=== PATIENT | male | born 1955 | race Caucasian/White ===

== ENCOUNTER 2018-01-17 10:06 | Emergency (ER) | payer OTHER ==
[~2018-01-17] VITALS: Ht 175.3 cm; Wt 88.6 kg
[2018-01-17 10:12] VITALS: BP 137/74; Ht 175.3 cm; Wt 88.6 kg
[2018-01-17] MEDS ORDERED: PERCOCET 10/3251 TA1 PO (10:17)
[2018-01-17 11:00] LABS: BASOPHILS 0.4 % (0-2); EOSINOPHILS 4.9 % (0-7); IMMATURE GRANULOCYTES 0.1 % (0-5); LYMPHOCYTES 18.9 % (15-50); MCH 31.1 pg (26.0-34.0); MCHC 33.3 g/dL (31.0-37.0); MCV 93.3 fL (80.0-100.0); NEUTROPHILS 68.7 % (40-80); PLATELET COUNT 215 10x3/uL (130-400); RBC 3.86 10x6/uL (4.20-6.10); RDW 11.8 % (11.5-14.5); WBC 8.2 10x3/uL (4.8-10.8)
[2018-01-17 11:08] LABS: APTT 27.9 SECONDS (22.8-39.4); INR 1.09 (0.85-1.17); PROTIME 13.7 SECONDS (11.6-15.0)
[2018-01-17 11:39] LABS: ALBUMIN 3.6 g/dL (3.4-5.0); ALKALINE PHOSPHATASE 38 U/L (46-116); ALT (SGPT) 38 U/L (10-68); CALC OSMOLALITY 275 mosm/kg (275-300); CALCIUM 8.6 mg/dL (8.5-10.1); CARBON DIOXIDE 30.5 mmol/L (21.0-32.0); CHLORIDE - SERUM 100 mmol/L (98-107); CREATININE - SERUM 1.2 mg/dL (0.6-1.3); GLUCOSE 109 mg/dL (74-106); POTASSIUM - SERUM 3.4 mmol/L (3.5-5.1); PROTEIN - SERUM 6.9 g/dL (6.4-8.2); SODIUM 138 mmol/L (136-145); UREA NITROGEN 10 mg/dL (7-18); eGFR NON AFRICAN AMERICAN 65 mL/min (90-120)
[2018-01-17 11:59] LABS: C-REACTIVE PROTEIN 17.4 mg/dL (0.0-0.9); CKMB 0.9 U/L (0.0-3.6); CREATINE KINASE 1015 UL (21-232); LIPASE 156 U/L (73-393); PRO BNP 158 pg/mL (0-125); TROPONIN-I < 0.017 ng/mL (0.000-0.060)
== END 2018-01-17 14:53 | disposition other institution (70) ==
LOC: D.ER 10:06
PROVIDERS: Emergency Medicine
DX: S92.902A Unspecified fracture of left foot, initial encounter for closed fracture (principal); S92.901A Unspecified fracture of right foot, initial encounter for closed fracture; W03.XXXA Other fall on same level due to collision with another person, initial encounter; Y93.89 Activity, other specified; Y92.89 Other specified places as the place of occurrence of the external cause; S82.892A Other fracture of left lower leg, initial encounter for closed fracture; S82.891A Other fracture of right lower leg, initial encounter for closed fracture

== ENCOUNTER → 2018-08-15 14:49 | Outpatient (CLI) | payer OTHER ==
[2018-01-17 10:12] VITALS: BMI 28.8
[~2018-08-15 14:49] MED LIST: PERCOCET 10/3251 TA1 PO
[2018-08-15 15:39] LABS: ANION GAP 16.4 mmol/L (8-16); CALCIUM 8.1 mg/dL (8.5-10.1); CARBON DIOXIDE 24.6 mmol/L (21.0-32.0); CREATININE - SERUM 1.1 mg/dL (0.6-1.3); VANCOMYCIN - RANDOM 13.4 ug/mL (10.0-20.0)
[2018-08-15 16:27] LABS: BASOPHILS 0.1 % (0-2); EOSINOPHILS 6.4 % (0-7); HEMATOCRIT 35.7 % (42.0-54.0); HEMOGLOBIN 11.3 g/dL (13.5-17.5); IMMATURE GRANULOCYTES 0.2 % (0-5); LYMPHOCYTES 12.1 % (15-50); MCH 28.8 pg (26.0-34.0); MCHC 31.7 g/dL (31.0-37.0); MCV 91.1 fL (80.0-100.0); MEAN PLATELET VOLUME 11.2 fL (7.4-10.4); MONOCYTES 7.8 % (2-11); NEUTROPHILS 73.4 % (40-80); PLATELET COUNT 239 10x3/uL (130-400); RBC 3.92 10x6/uL (4.20-6.10); RDW 14.4 % (11.5-14.5); WBC 9.3 10x3/uL (4.8-10.8)
== END | disposition home or self-care (01) ==
LOC: D.LABREF 14:49
PROVIDERS: Thoracic Surgery (Cardiothoracic Vascular Surgery)
DX: M86.9 Osteomyelitis, unspecified (principal); M01.X Direct infection of joint in infectious and parasitic diseases classified elsewhere; Z51.81 Encounter for therapeutic drug level monitoring; Z79.2 Long term (current) use of antibiotics

== ENCOUNTER → 2018-08-18 13:22 | Outpatient (CLI) | payer OTHER ==
[2018-01-17 10:12] VITALS: BMI 28.8
[2018-08-18 14:25] LABS: BASOPHILS 0.5 % (0-2); EOSINOPHILS 10.7 % (0-7); HEMATOCRIT 36.3 % (42.0-54.0); HEMOGLOBIN 11.5 g/dL (13.5-17.5); IMMATURE GRANULOCYTES 0.3 % (0-5); MCH 28.7 pg (26.0-34.0); MCHC 31.7 g/dL (31.0-37.0); MCV 90.5 fL (80.0-100.0); MEAN PLATELET VOLUME 10.9 fL (7.4-10.4); MONOCYTES 6.7 % (2-11); NEUTROPHILS 54.8 % (40-80); PLATELET COUNT 245 10x3/uL (130-400); RBC 4.01 10x6/uL (4.20-6.10); RDW 14.1 % (11.5-14.5); WBC 6.3 10x3/uL (4.8-10.8)
[2018-08-18 14:51] LABS: ANION GAP 13.1 mmol/L (8-16); CALCIUM 8.8 mg/dL (8.5-10.1); CARBON DIOXIDE 29.3 mmol/L (21.0-32.0); CREATININE - SERUM 1.2 mg/dL (0.6-1.3); POTASSIUM - SERUM 4.4 mmol/L (3.5-5.1); VANCOMYCIN - TROUGH 15.3 ug/mL (10.0-20.0)
== END | disposition home or self-care (01) ==
LOC: D.LABREF 13:22
PROVIDERS: Orthopaedic Surgery Foot and Ankle Surgery
DX: Z51.81 Encounter for therapeutic drug level monitoring (principal); Z79.2 Long term (current) use of antibiotics

== ENCOUNTER → 2018-08-18 14:51 | Outpatient (CLI) | payer OTHER ==
[2018-01-17 10:12] VITALS: BMI 28.8
== END | disposition home or self-care (01) ==
LOC: D.LABREF 14:51
DX: Z51.81 Encounter for therapeutic drug level monitoring (principal); Z79.2 Long term (current) use of antibiotics

== ENCOUNTER → 2018-08-25 10:29 | Outpatient (CLI) | payer OTHER ==
[2018-01-17 10:12] VITALS: BMI 28.8
[2018-08-25 19:30] LABS: BASOPHILS 0.4 % (0-2); EOSINOPHILS 7.5 % (0-7); HEMATOCRIT 40.5 % (42.0-54.0); HEMOGLOBIN 12.9 g/dL (13.5-17.5); IMMATURE GRANULOCYTES 0.4 % (0-5); LYMPHOCYTES 25.7 % (15-50); MCH 29.6 pg (26.0-34.0); MCHC 31.9 g/dL (31.0-37.0); MCV 92.9 fL (80.0-100.0); MONOCYTES 6.8 % (2-11); NEUTROPHILS 59.2 % (40-80); PLATELET COUNT 296 10x3/uL (130-400); RBC 4.36 10x6/uL (4.20-6.10); RDW 14.7 % (11.5-14.5); WBC 7.3 10x3/uL (4.8-10.8)
[2018-08-25 19:45] LABS: ANION GAP 14.3 mmol/L (8-16); CALCIUM 8.8 mg/dL (8.5-10.1); CREATININE - SERUM 1.2 mg/dL (0.6-1.3); POTASSIUM - SERUM 4.3 mmol/L (3.5-5.1); VANCOMYCIN - TROUGH 16.1 ug/mL (10.0-20.0)
== END | disposition home or self-care (01) ==
LOC: D.LABREF 10:29
PROVIDERS: Student in an Organized Health Care Education/Training Program
DX: M86.9 Osteomyelitis, unspecified (principal)

== ENCOUNTER → 2018-09-01 12:07 | Outpatient (CLI) | payer OTHER ==
[2018-01-17 10:12] VITALS: BMI 28.8
[2018-09-01 12:59] LABS: BASOPHILS 0.6 % (0-2); EOSINOPHILS 7.6 % (0-7); HEMATOCRIT 40.9 % (42.0-54.0); HEMOGLOBIN 13.2 g/dL (13.5-17.5); IMMATURE GRANULOCYTES 0.1 % (0-5); LYMPHOCYTES 23.6 % (15-50); MCH 29.5 pg (26.0-34.0); MCHC 32.3 g/dL (31.0-37.0); MCV 91.5 fL (80.0-100.0); MEAN PLATELET VOLUME 10.6 fL (7.4-10.4); MONOCYTES 8.6 % (2-11); NEUTROPHILS 59.5 % (40-80); PLATELET COUNT 240 10x3/uL (130-400); RBC 4.47 10x6/uL (4.20-6.10); RDW 14.1 % (11.5-14.5); WBC 7.1 10x3/uL (4.8-10.8)
[2018-09-01 13:11] LABS: ANION GAP 11.3 mmol/L (8-16); CALCIUM 8.9 mg/dL (8.5-10.1); CARBON DIOXIDE 27.8 mmol/L (21.0-32.0); CREATININE - SERUM 1.2 mg/dL (0.6-1.3); POTASSIUM - SERUM 4.1 mmol/L (3.5-5.1); VANCOMYCIN - TROUGH 14.7 ug/mL (10.0-20.0)
== END | disposition home or self-care (01) ==
LOC: D.LABREF 12:07
PROVIDERS: Orthopaedic Surgery Foot and Ankle Surgery
DX: T14.8XXA Other injury of unspecified body region, initial encounter (principal); X58.XXXA Exposure to other specified factors, initial encounter; Z51.81 Encounter for therapeutic drug level monitoring; Z79.2 Long term (current) use of antibiotics

== ENCOUNTER → 2018-11-17 14:01 | Outpatient (CLI) | payer OTHER ==
[2018-01-17 10:12] VITALS: BMI 28.8
[2018-11-17 21:32] LABS: BASOPHILS 0.3 % (0-2); EOSINOPHILS 5.1 % (0-7); HEMATOCRIT 42.1 % (42.0-54.0); HEMOGLOBIN 13.3 g/dL (13.5-17.5); IMMATURE GRANULOCYTES 0.2 % (0-5); LYMPHOCYTES 25.7 % (15-50); MCH 28.3 pg (26.0-34.0); MCHC 31.6 g/dL (31.0-37.0); MCV 89.6 fL (80.0-100.0); MONOCYTES 6.6 % (2-11); NEUTROPHILS 62.1 % (40-80); RDW 13.7 % (11.5-14.5); WBC 6.1 10x3/uL (4.8-10.8)
[2018-11-17 21:35] LABS: PLATELET COUNT 349 10x3/uL (130-400)
[2018-11-17 21:41] LABS: ANION GAP 15.6 mmol/L (8-16); CALCIUM 9.2 mg/dL (8.5-10.1); CARBON DIOXIDE 26.7 mmol/L (21.0-32.0); CREATININE - SERUM 1.2 mg/dL (0.6-1.3); POTASSIUM - SERUM 4.3 mmol/L (3.5-5.1)
== END | disposition home or self-care (01) ==
LOC: D.LABREF 14:01
PROVIDERS: ATTEND Student in an Organized Health Care Education/Training Program
DX: M86.671 Other chronic osteomyelitis, right ankle and foot (principal)

== ENCOUNTER → 2018-11-24 12:50 | Outpatient (CLI) | payer OTHER ==
[2018-01-17 10:12] VITALS: BMI 28.8
[2018-11-24 16:47] LABS: BASOPHILS 0.5 % (0-2); EOSINOPHILS 4.2 % (0-7); HEMOGLOBIN 12.8 g/dL (13.5-17.5); IMMATURE GRANULOCYTES 0.2 % (0-5); LYMPHOCYTES 25.8 % (15-50); MCH 28.3 pg (26.0-34.0); MCV 88.5 fL (80.0-100.0); MEAN PLATELET VOLUME 11.8 fL (7.4-10.4); MONOCYTES 5.4 % (2-11); NEUTROPHILS 63.9 % (40-80); RBC 4.52 10x6/uL (4.20-6.10); WBC 6.2 10x3/uL (4.8-10.8)
[2018-11-24 17:04] LABS: ANION GAP 15.4 mmol/L (8-16); CALCIUM 8.8 mg/dL (8.5-10.1); CARBON DIOXIDE 24.9 mmol/L (21.0-32.0); CREATININE - SERUM 1.1 mg/dL (0.6-1.3); PLATELET COUNT 233 10x3/uL (130-400); POTASSIUM - SERUM 4.3 mmol/L (3.5-5.1)
== END | disposition home or self-care (01) ==
LOC: D.LABREF 12:50
PROVIDERS: ATTEND Colon & Rectal Surgery
DX: M86.671 Other chronic osteomyelitis, right ankle and foot (principal)

== ENCOUNTER → 2018-12-01 12:08 | Outpatient (CLI) | payer OTHER ==
[2018-01-17 10:12] VITALS: BMI 28.8
[2018-12-01 12:30] LABS: BASOPHILS 0.6 % (0-2); EOSINOPHILS 12.1 % (0-7); HEMOGLOBIN 12.6 g/dL (13.5-17.5); IMMATURE GRANULOCYTES 0.1 % (0-5); LYMPHOCYTES 20.7 % (15-50); MCH 28.1 pg (26.0-34.0); MCHC 31.5 g/dL (31.0-37.0); MCV 89.3 fL (80.0-100.0); MEAN PLATELET VOLUME 11.6 fL (7.4-10.4); MONOCYTES 5.7 % (2-11); NEUTROPHILS 60.8 % (40-80); PLATELET COUNT 219 10x3/uL (130-400); RBC 4.48 10x6/uL (4.20-6.10); RDW 14.4 % (11.5-14.5); WBC 6.7 10x3/uL (4.8-10.8)
[2018-12-01 12:41] LABS: ANION GAP 12.9 mmol/L (8-16); CALCIUM 8.7 mg/dL (8.5-10.1); CARBON DIOXIDE 27.4 mmol/L (21.0-32.0); CREATININE - SERUM 1.1 mg/dL (0.6-1.3); POTASSIUM - SERUM 4.3 mmol/L (3.5-5.1)
== END | disposition home or self-care (01) ==
LOC: D.LABREF 12:08
PROVIDERS: ATTEND Colon & Rectal Surgery
DX: M86.671 Other chronic osteomyelitis, right ankle and foot (principal)

== ENCOUNTER → 2018-12-08 13:40 | Outpatient (CLI) | payer OTHER ==
[2018-01-17 10:12] VITALS: BMI 28.8
[2018-12-08 15:33] LABS: BASOPHILS 0.4 % (0-2); EOSINOPHILS 8.3 % (0-7); HEMATOCRIT 41.6 % (42.0-54.0); HEMOGLOBIN 13.5 g/dL (13.5-17.5); IMMATURE GRANULOCYTES 0.1 % (0-5); LYMPHOCYTES 28.3 % (15-50); MCH 28.3 pg (26.0-34.0); MCHC 32.5 g/dL (31.0-37.0); MCV 87.2 fL (80.0-100.0); MEAN PLATELET VOLUME 11.1 fL (7.4-10.4); MONOCYTES 4.6 % (2-11); NEUTROPHILS 58.3 % (40-80); PLATELET COUNT 247 10x3/uL (130-400); RBC 4.77 10x6/uL (4.20-6.10); RDW 14.5 % (11.5-14.5); WBC 7.1 10x3/uL (4.8-10.8)
[2018-12-08 15:51] LABS: ANION GAP 17.3 mmol/L (8-16); CARBON DIOXIDE 22.9 mmol/L (21.0-32.0); CREATININE - SERUM 1.1 mg/dL (0.6-1.3); POTASSIUM - SERUM 4.2 mmol/L (3.5-5.1)
== END | disposition home or self-care (01) ==
LOC: D.LABREF 13:40
PROVIDERS: ATTEND Student in an Organized Health Care Education/Training Program
DX: M86.671 Other chronic osteomyelitis, right ankle and foot (principal); S91.301D Unspecified open wound, right foot, subsequent encounter; S91.302D Unspecified open wound, left foot, subsequent encounter

== ENCOUNTER → 2018-12-15 13:36 | Outpatient (CLI) | payer OTHER ==
[2018-01-17 10:12] VITALS: BMI 28.8
[2018-12-15 13:56] LABS: BASOPHILS 0.5 % (0-2); HEMATOCRIT 42.6 % (42.0-54.0); HEMOGLOBIN 13.9 g/dL (13.5-17.5); IMMATURE GRANULOCYTES 0.3 % (0-5); LYMPHOCYTES 26.2 % (15-50); MCH 28.7 pg (26.0-34.0); MCHC 32.6 g/dL (31.0-37.0); MCV 87.8 fL (80.0-100.0); MEAN PLATELET VOLUME 10.6 fL (7.4-10.4); MONOCYTES 6.4 % (2-11); NEUTROPHILS 61.6 % (40-80); RBC 4.85 10x6/uL (4.20-6.10); RDW 14.7 % (11.5-14.5); WBC 8.6 10x3/uL (4.8-10.8)
[2018-12-15 14:02] LABS: PLATELET COUNT 322 10x3/uL (130-400)
[2018-12-15 14:15] LABS: ANION GAP 16.5 mmol/L (8-16); CALCIUM 9.1 mg/dL (8.5-10.1); CARBON DIOXIDE 25.8 mmol/L (21.0-32.0); CREATININE - SERUM 1.3 mg/dL (0.6-1.3); POTASSIUM - SERUM 4.3 mmol/L (3.5-5.1)
== END | disposition home or self-care (01) ==
LOC: D.LAB 13:36
PROVIDERS: ATTEND Colon & Rectal Surgery
DX: M86.671 Other chronic osteomyelitis, right ankle and foot (principal)

== ENCOUNTER → 2018-12-15 14:41 | Outpatient (CLI) | payer OTHER ==
[2018-01-17 10:12] VITALS: BMI 28.8
== END | disposition home or self-care (01) ==
LOC: D.LABREF 14:41
PROVIDERS: ATTEND Colon & Rectal Surgery
DX: M86.671 Other chronic osteomyelitis, right ankle and foot (principal)